=== PATIENT | female | born 1980 | race African-American/Black ===

== ENCOUNTER 2017-05-29 17:02 | Emergency (ER) | payer OTHER ==
[~2017-05-29 17:02] MED LIST: ALLERGY RELIEF10 M3 PO; AMOXICILLIN PO; AMOXICILLIN500 M1 PO; AZITHROMYCIN1 GM PO; BACTRIM DS TABL1 TA1 PO; BENZONATATE PO; BLEPH-105 M1 OP; IBUPROFEN600 MG PO; KEFLEX PO; NAPROSYN500 MG PO; PAXIL10 MG PO; PHENERGAN DM1 ML DOB; ULTRAM PO; VOLTAREN75 MG PO
== END 2017-05-29 17:50 | disposition home or self-care (01) ==
LOC: CED 17:02 → CFTX 17:02
DX: L03.115 Cellulitis of right lower limb (principal); S81.811D Laceration without foreign body, right lower leg, subsequent encounter; Z23 Encounter for immunization; D64.9 Anemia, unspecified; F43.10 Post-traumatic stress disorder, unspecified; Z88.8 Allergy status to other drugs, medicaments and biological substances
CPT/HCPCS: 90471; 90715; 99281